=== PATIENT | male | born 1960 | race Caucasian/White ===

== ENCOUNTER 2018-06-16 01:49 | Emergency (ER) | payer BC ==
--- NOTE | 2018-07-30 13:31 | EDM.PDOC ---
ED HPI GENERAL MEDICAL PROBLEM - General Chief Complaint: General Stated Complaint: Vertigo Time Seen by Provider: 06/16/18 03:00 Source of Information: Reports: Patient History Limitations: Reports: No Limitations - History of Present Illness INITIAL COMMENTS - FREE TEXT/NARRATIVE: This is a 58yo M who just finished work at [employer] here for dizziness. He denies prior history of dizziness but felt that he was even unable to drive because of the dizziness. He does complain of some right ear pain. Denies any fever or chills. No chest pain or shortness of breath. Onset: Sudden Duration: Minutes:, Constant Location: Reports: Generalized Past Medical History HEENT History: Reports: Other (See Below) Other HEENT History: R ear fullness since yesterday Cardiovascular History: Reports: Hypertension Respiratory History: Reports: None Genitourinary History: Reports: None Musculoskeletal History: Reports: None Other Hematologic History: Hx PE's - Past Surgical History HEENT Surgical History: Reports: None Cardiovascular Surgical History: Reports: None Respiratory Surgical History: Reports: None Male Surgical History: Reports: None Other Neurological Surgeries/Procedures: dizziness started 0100 tonight, worse when Pt turns his head. States R ear pressure since yesterday. Musculoskeletal Surgical History: Reports: Arthroscopic Knee Social & Family History - Family History Family Medical History: Noncontributory - Tobacco Use Smoking Status *Q: Never Smoker Second Hand Smoke Exposure: No - Caffeine Use Caffeine Use: Reports: None - Recreational Drug Use Recreational Drug Use: No ED ROS GENERAL - Review of Systems Review Of Systems: ROS reveals no pertinent complaints other than HPI. ED EXAM, DIZZINESS - Physical Exam Exam: See Below Exam Limited By: No Limitations General Appearance: Alert, WD/WN, Mild Distress Eye Exam: Bilateral Eye: EOMI, PERRL Ears: Normal External Exam, Normal Canal, TM Erythema (right), Abnormal Insufflation (right) Nose: Normal Inspection Throat/Mouth: Normal Inspection Head Exam: Atraumatic, Normocephalic Neck: Normal Inspection Respiratory/Chest: No Respiratory Distress, Lungs Clear, Normal Breath Sounds Cardiovascular: Normal Peripheral Pulses, Regular Rate, Rhythm Neurological: Alert, Normal Mood/Affect, Normal Dorsiflexion, CN II-XII Intact Course - Vital Signs Last Recorded V/S: Last Vital Signs Temp 37.1 C 06/16/18 02:20 Pulse 89 06/16/18 02:20 Resp 18 06/16/18 02:20 BP 133/91 H 06/16/18 02:20 Pulse Ox 95 06/16/18 02:20 - Orders/Labs/Meds Meds: Medications Discontinued Medications Generic Name Dose Route Start Last Admin Trade Name Domi PRN Reason Stop Dose Admin Meclizine HCl 150 mg 06/16/18 02:00 Antivert .ROUTE 06/16/18 02:01 .STK-MED ONE Departure - Departure Time of Disposition: 03:45 Disposition: Home, Self-Care 01 Condition: Good Clinical Impression: Acute effusion of right ear - Discharge Information Instructions: Vertigo, [id number], Otitis Media, Adult, [id number] Referrals: PCP,None [Primary Care Provider] - Forms: ED Department Discharge - Problem List & Annotations (1) Acute effusion of right ear SNOMED Code(s): 95472789 Code(s): H65.191 - OTHER ACUTE NONSUPPURATIVE OTITIS MEDIA, RIGHT EAR Status: Acute - Problem List Review Problem List Initiated/Reviewed/Updated: Yes - Assessment/Plan Plan: Counseled on therapy and management. Discussed close monitoring and f/u in clinic or ER if further symptoms. Discussed resolution of symptoms and recheck as needed. Discussed care and management. Patient agrees with f/u if symptoms persist or worsen.
== END 2018-06-16 03:09 | disposition home or self-care (01) ==
LOC: LB.ED 01:49
DX: H93.8X1 Other specified disorders of right ear (principal); I10 Essential (primary) hypertension
CPT/HCPCS: 99283; A9270

== ENCOUNTER 2019-03-28 11:01 | Emergency (ER) | payer BC ==
--- NOTE | 2019-03-28 11:28 | EDM.PDOC ---
ED HPI GENERAL MEDICAL PROBLEM - General Chief Complaint: General Stated Complaint: Fall and unable to get up Time Seen by Provider: 03/28/19 11:15 Source of Information: Reports: Patient, EMS, EMS Notes Reviewed History Limitations: Reports: No Limitations - History of Present Illness INITIAL COMMENTS - FREE TEXT/NARRATIVE: This is a 59yo M here for feeling weak, chills for 24-48hrs, and falling with the inability to get up. He states he has not been feeling well for weeks and that things have gotten worse. He has a history of lymphedema and notes that there are open sores of the right lower leg for the past few days. Onset: Gradual Duration: Chronic, Resolved Prior to Arrival Location: Reports: Generalized Improves with: Reports: None Worsens with: Reports: None Associated Symptoms: Reports: Fever/Chills, Shortness of Breath, Weakness Bilateral Arm Pain Score (Numeric/FACES): 6 - Related Data Allergies Allergy/AdvReac Type Severity Reaction Status Date / Time No Known Allergies Allergy Verified 03/28/19 13:39 Home Meds: Home Meds Lisinopril 20 mg PO DAILY 03/28/19 [History] Warfarin Sodium [Jantoven] 10 mg PO DAILY 03/28/19 [History] Warfarin Sodium [Jantoven] 15 mg PO DAILY 03/28/19 [History] Past Medical History HEENT History: Reports: Other (See Below) Other HEENT History: R ear fullness since yesterday Cardiovascular History: Reports: Hypertension Respiratory History: Reports: None Genitourinary History: Reports: None Musculoskeletal History: Reports: None Other Hematologic History: Hx PE's - Past Surgical History HEENT Surgical History: Reports: None Cardiovascular Surgical History: Reports: None Respiratory Surgical History: Reports: None Male Surgical History: Reports: None Other Neurological Surgeries/Procedures: dizziness started 0100 tonight, worse when Pt turns his head. States R ear pressure since yesterday. Musculoskeletal Surgical History: Reports: Arthroscopic Knee Social & Family History - Family History Family Medical History: Noncontributory - Caffeine Use Caffeine Use: Reports: None ED ROS GENERAL - Review of Systems Review Of Systems: ROS reveals no pertinent complaints other than HPI. ED EXAM, SEPSIS - Physical Exam Exam: See Below Exam Limited By: No Limitations General Appearance: Alert, WD/WN, Mild Distress Eye Exam: Bilateral Eye: EOMI, PERRL Ears: Normal External Exam Nose: Normal Inspection Throat/Mouth: Normal Inspection Head: Atraumatic, Normocephalic Neck: Normal Inspection Respiratory/Chest: No Respiratory Distress, Lungs Clear, Normal Breath Sounds Cardiovascular: Normal Peripheral Pulses, Tachycardia Peripheral Pulses: 2+: Dorsalis Pedis (L), Dorsalis Pedis (R) GI/Abdominal Exam: Normal Bowel Sounds Back: Normal Inspection Extremities: Pedal Edema, Redness, Other (open wound of the right leg) Neurological: Alert, Oriented Psychiatric: Normal Affect, Normal Mood Skin: Wound/Incision Course - Vital Signs Last Recorded V/S: Last Vital Signs Temp 37.2 C 03/28/19 16:08 Pulse 105 H 03/28/19 16:08 Resp 20 03/28/19 16:08 BP 107/43 L 03/28/19 16:08 Pulse Ox 94 L 03/28/19 16:08 - Orders/Labs/Meds Labs: Laboratory Tests 03/28/19 03/28/19 03/28/19 Range/Units 11:25 11:25 11:25 WBC 17.7 H D (4.0-11.0) K/uL RBC 4.40 L (4.50-6.50) M/uL Hgb 12.6 L (13.0-18.0) g/dL Hct 39.9 L (40.0-54.0) % MCV 91 (76-96) fL MCH 28.6 (27.0-32.0) pg MCHC 31.6 (31.0-35.0) g/dL RDW 17.6 H (11.0-16.0) % Plt Count 275 D (150-400) K/uL MPV 8.9 (6.0-10.0) fL Neut % (Auto) 91.8 H (45.0-70.0) % Lymph % (Auto) 3.0 L (20.0-40.0) % Saunders % (Auto) 5.0 (3.0-10.0) % Eos % (Auto) 0.1 L (1.0-5.0) % Baso % (Auto) 0.1 (0.0-0.5) % Neut # (Auto) 16.26 H (2.00-7.50) K/uL Lymph # (Auto) 0.53 L (1.50-4.00) K/uL Saunders # (Auto) 0.88 H (0.20-0.80) K/uL Eos # (Auto) 0.01 L (0.04-0.40) K/uL Baso # (Auto) 0.02 (0.02-0.10) K/uL PT 24.5 H (9.0-11.5) sec INR 2.6 (1.0-3.5) D-Dimer, Quantitative (0-400) ng/mL VBG pH 7.32 (7.31-7.41) Sodium (136-145) mmol/L Potassium (3.5-5.1) mmol/L Chloride (98-107) mmol/L Carbon Dioxide (21.0-32.0) mmol/L Anion Gap (5.0-15.0) mmol/L BUN (8-26) mg/dL Creatinine (0.70-1.30) mg/dL Est Cr Clr Drug Dosing mL/min Estimated GFR (MDRD) (>60) MLS/MIN BUN/Creatinine Ratio (6-25) Glucose (74-100) mg/dL Hemoglobin A1c (4.5-6.2) % Lactic Acid (0.90-1.70) mmol/L Calcium (8.5-10.1) mg/dL Total Bilirubin (0.0-1.0) mg/dL AST (15-37) U/L ALT (12-78) U/L Alkaline Phosphatase (46-116) U/L Troponin I (0.000-0.060) ng/mL B-Natriuretic Peptide (0-125) pg/mL Total Protein (6.4-8.2) g/dL Albumin (3.4-5.0) g/dL Globulin (2.2-4.2) g/dL Albumin/Globulin Ratio (0.8-2.0) TSH, Ultra Sensitive (0.358-3.740) uIU/mL Urine Color Urine Appearance (CLEAR) Urine pH (5.0-8.0) Ur Specific [place] (1.003-1.030) Urine Protein (NEGATIVE) mg/dL Urine Glucose (UA) (NEGATIVE) mg/dL Urine Ketones (NEGATIVE) mg/dL Urine Occult Blood (NEGATIVE) Urine Nitrite (NEGATIVE) Urine Bilirubin (NEGATIVE) Urine Urobilinogen (0.2-1.0) E.U./dL Ur Leukocyte Esterase (NEGATIVE) Urine RBC /HPF Urine WBC /HPF Ur Squamous Epith Cells /HPF 03/28/19 03/28/19 03/28/19 Range/Units 11:25 11:25 11:25 WBC (4.0-11.0) K/uL RBC (4.50-6.50) M/uL Hgb (13.0-18.0) g/dL Hct (40.0-54.0) % MCV (76-96) fL MCH (27.0-32.0) pg MCHC (31.0-35.0) g/dL RDW (11.0-16.0) % Plt Count (150-400) K/uL MPV (6.0-10.0) fL Neut % (Auto) (45.0-70.0) % Lymph % (Auto) (20.0-40.0) % Saunders % (Auto) (3.0-10.0) % Eos % (Auto) (1.0-5.0) % Baso % (Auto) (0.0-0.5) % Neut # (Auto) (2.00-7.50) K/uL Lymph # (Auto) (1.50-4.00) K/uL Saunders # (Auto) (0.20-0.80) K/uL Eos # (Auto) (0.04-0.40) K/uL Baso # (Auto) (0.02-0.10) K/uL PT (9.0-11.5) sec INR (1.0-3.5) D-Dimer, Quantitative 525 H (0-400) ng/mL VBG pH (7.31-7.41) Sodium 141 (136-145) mmol/L Potassium 4.3 (3.5-5.1) mmol/L Chloride 105 (98-107) mmol/L Carbon Dioxide 28.2 (21.0-32.0) mmol/L Anion Gap 12.1 (5.0-15.0) mmol/L BUN 15 D (8-26) mg/dL Creatinine 1.42 H D (0.70-1.30) mg/dL Est Cr Clr Drug Dosing 59.26 mL/min Estimated GFR (MDRD) 51 L (>60) MLS/MIN BUN/Creatinine Ratio 10.6 (6-25) Glucose 135 H (74-100) mg/dL Hemoglobin A1c (4.5-6.2) % Lactic Acid 2.00 H (0.90-1.70) mmol/L Calcium 8.2 L (8.5-10.1) mg/dL Total Bilirubin 0.6 (0.0-1.0) mg/dL AST 33 (15-37) U/L ALT 31 (12-78) U/L Alkaline Phosphatase 66 (46-116) U/L Troponin I 0.026 (0.000-0.060) ng/mL B-Natriuretic Peptide (0-125) pg/mL Total Protein 8.8 H (6.4-8.2) g/dL Albumin 2.9 L (3.4-5.0) g/dL Globulin 5.9 H (2.2-4.2) g/dL Albumin/Globulin Ratio 0.5 L (0.8-2.0) TSH, Ultra Sensitive 0.791 (0.358-3.740) uIU/mL Urine Color Urine Appearance (CLEAR) Urine pH (5.0-8.0) Ur Specific [place] (1.003-1.030) Urine Protein (NEGATIVE) mg/dL Urine Glucose (UA) (NEGATIVE) mg/dL Urine Ketones (NEGATIVE) mg/dL Urine Occult Blood (NEGATIVE) Urine Nitrite (NEGATIVE) Urine Bilirubin (NEGATIVE) Urine Urobilinogen (0.2-1.0) E.U./dL Ur Leukocyte Esterase (NEGATIVE) Urine RBC /HPF Urine WBC /HPF Ur Squamous Epith Cells /HPF 03/28/19 03/28/19 03/28/19 Range/Units 11:25 11:25 12:00 WBC (4.0-11.0) K/uL RBC (4.50-6.50) M/uL Hgb (13.0-18.0) g/dL Hct (40.0-54.0) % MCV (76-96) fL MCH (27.0-32.0) pg MCHC (31.0-35.0) g/dL RDW (11.0-16.0) % Plt Count (150-400) K/uL MPV (6.0-10.0) fL Neut % (Auto) (45.0-70.0) % Lymph % (Auto) (20.0-40.0) % Saunders % (Auto) (3.0-10.0) % Eos % (Auto) (1.0-5.0) % Baso % (Auto) (0.0-0.5) % Neut # (Auto) (2.00-7.50) K/uL Lymph # (Auto) (1.50-4.00) K/uL Saunders # (Auto) (0.20-0.80) K/uL Eos # (Auto) (0.04-0.40) K/uL Baso # (Auto) (0.02-0.10) K/uL PT (9.0-11.5) sec INR (1.0-3.5) D-Dimer, Quantitative (0-400) ng/mL VBG pH (7.31-7.41) Sodium (136-145) mmol/L Potassium (3.5-5.1) mmol/L Chloride (98-107) mmol/L Carbon Dioxide (21.0-32.0) mmol/L Anion Gap (5.0-15.0) mmol/L BUN (8-26) mg/dL Creatinine (0.70-1.30) mg/dL Est Cr Clr Drug Dosing mL/min Estimated GFR (MDRD) (>60) MLS/MIN BUN/Creatinine Ratio (6-25) Glucose (74-100) mg/dL Hemoglobin A1c 6.8 H (4.5-6.2) % Lactic Acid (0.90-1.70) mmol/L Calcium (8.5-10.1) mg/dL Total Bilirubin (0.0-1.0) mg/dL AST (15-37) U/L ALT (12-78) U/L Alkaline Phosphatase (46-116) U/L Troponin I (0.000-0.060) ng/mL B-Natriuretic Peptide 736 H (0-125) pg/mL Total Protein (6.4-8.2) g/dL Albumin (3.4-5.0) g/dL Globulin (2.2-4.2) g/dL Albumin/Globulin Ratio (0.8-2.0) TSH, Ultra Sensitive (0.358-3.740) uIU/mL Urine Color Yellow Urine Appearance Clear (CLEAR) Urine pH 5.5 (5.0-8.0) Ur Specific [place] 1.020 (1.003-1.030) Urine Protein 100 H (NEGATIVE) mg/dL Urine Glucose (UA) Negative (NEGATIVE) mg/dL Urine Ketones Negative (NEGATIVE) mg/dL Urine Occult Blood Moderate H (NEGATIVE) Urine Nitrite Negative (NEGATIVE) Urine Bilirubin Negative (NEGATIVE) Urine Urobilinogen 0.2 (0.2-1.0) E.U./dL Ur Leukocyte Esterase Negative (NEGATIVE) Urine RBC 0-5 H /HPF Urine WBC 0-5 H /HPF Ur Squamous Epith Cells Few /HPF Meds: Medications Discontinued Medications Generic Name Dose Route Start Last Admin Trade Name Freq PRN Reason Stop Dose Admin Acetaminophen Confirm 03/28/19 15:11 03/28/19 17:23 Tylenol Administered 03/28/19 15:12 Not Given Dose 650 mg .ROUTE .STK-MED ONE Acetaminophen 650 mg 03/28/19 17:22 03/28/19 15:03 Tylenol PO 03/28/19 17:23 650 mg NOW ONE Administration Sodium Chloride 1,000 mls @ 999 mls/hr 03/28/19 12:00 03/28/19 13:50 Normal Saline IV 999 mls/hr ASDIRECTED NELIDA Administration Piperacillin Sod/Tazobactam 100 mls @ 200 mls/hr 03/28/19 12:00 03/28/19 13: 00 Sod 4.5 gm/ Sodium Chloride IV 200 mls/hr Q6H NELIDA Administration Departure - Departure Time of Disposition: 14:45 Disposition: DC/Tfer to Acute Hospital 02 Condition: Good Clinical Impression: SIRS (systemic inflammatory response syndrome) Sepsis Qualifiers: Sepsis type: sepsis due to unspecified organism Sepsis acute organ dysfunction status: with acute organ dysfunction Severe sepsis acute organ dysfunction type : acute renal failure Acute renal failure type: unspecified Severe sepsis shock status: unspecified Qualified Code(s): A41.9 - Sepsis, unspecified organism - Discharge Information Referrals: PCP,None [Primary Care Provider] - Forms: ED Department Discharge - Problem List & Annotations (1) SIRS (systemic inflammatory response syndrome) SNOMED Code(s): 556505106 Code(s): R65.10 - SIRS OF NON-INFECTIOUS ORIGIN W/O ACUTE ORGAN DYSFUNCTION Status: Acute Priority: High (2) Sepsis SNOMED Code(s): 22965059 Code(s): A41.9 - SEPSIS, UNSPECIFIED ORGANISM Status: Acute Priority: High Qualifiers: Sepsis type: sepsis due to unspecified organism Sepsis acute organ dysfunction status: with acute organ dysfunction Severe sepsis acute organ dysfunction type: acute renal failure Acute renal failure type: unspecified Severe sepsis shock status: unspecified Qualified Code(s): A41.9 - Sepsis, unspecified organism; R65.20 - Severe sepsis without septic shock; N17.9 - Acute kidney failure, unspecified - Problem List Review Problem List Initiated/Reviewed/Updated: Yes - Assessment/Plan Plan: Patient counseled on transfer to [facility] for further care in ICU. Patient to be transferred by [facility]. ([facility] declined transfer as they did not feel comfortable with this patient.)
[2019-03-28] MEDS ORDERED: Piperacillin/Tazobactam 4.5 GM in Sodium Chloride 0.9% 100 ML IV SCH (12:00)
[2019-03-28] MEDS ORDERED: Sodium Chloride 0.9% 1,000 ML IV SCH (12:00)
[2019-03-28 12:09] LABS: HEMOGLOBIN A1C 6.8 % (4.5-6.2)
--- NOTE | 2019-03-28 13:20 | CR ---
Date of Service: 03/28/19 Clinical Data: weakness AP PORTABLE CHEST: Comparison is made to a prior exam dated 04/10/10. The exam is under penetrated most likely related to the patient's size. The heart is enlarged. There is pulmonary vascular congestion with cephalization of flow consistent with pulmonary venous congestion. There is slight increased density in the left lung base suggesting infiltrate or atelectasis. The lungs are otherwise clear. No pneumothorax. No pleural effusions. [id number] [facility]
[2019-03-28] MEDS ORDERED: Acetaminophen 325 MG Tab ONE (15:11)
[2019-03-28] MEDS ORDERED: Acetaminophen 325 MG Tab PO ONE (17:22)
== END 2019-03-28 17:15 ==
LOC: LB.ED 11:01
DX: A41.9 Sepsis, unspecified organism (principal); R65.20 Severe sepsis without septic shock; N17.9 Acute kidney failure, unspecified; I10 Essential (primary) hypertension; Z79.01 Long term (current) use of anticoagulants; Z79.899 Other long term (current) drug therapy
CPT/HCPCS: 36415; 71045; 80053; 81001; 82800; 83036; 83605; 83880; 84443; 84484; 85025; 85379; 85610; 87040; 87070; 87077; 87205; 93005; 96361; 96365; 99285; A0425; A0429; A9270; J2543; J7030

== ENCOUNTER 2019-11-14 11:04 | Inpatient (IN) | payer BC ==
[2019-11-14] MEDS ORDERED: Furosemide 40 MG/4 ML VIAL ONE (11:56)
--- NOTE | 2019-11-14 12:36 | EDM.PDOC ---
ED HPI GENERAL MEDICAL PROBLEM - General Stated Complaint: UNABLE TO GET UP Time Seen by Provider: 11/14/19 11:04 Source of Information: Reports: Patient, EMS, RN, Other (primary MD) - History of Present Illness INITIAL COMMENTS - FREE TEXT/NARRATIVE: Wicho presents via ems as he was unable to ascend from his chair. No focal weakness or speech deficits. No recent illness, h/a, or fevers. Denies SOB. He was doing quite well in staying active working at [employer] recently, as little as a couple of weeks ago. Attributes his inability to stand and ambulate at present to deconditioning, namely, lack of exercise. He has been following for wound care of bilateral distal lower extremity skin changes, felt related to his venous insufficiency. He has had no chest pain, diaphoresis, or orthopnea, although he was confined to his chair for 2 days. No gi/gu changes. Prefers not to have a andrews placed. He thinks he would want to be full code. - Related Data Allergies Allergy/AdvReac Type Severity Reaction Status Date / Time No Known Allergies Allergy Verified 03/28/19 13:39 Home Meds: Home Meds Warfarin Sodium [Jantoven] 10 mg PO DAILY 03/28/19 [History] Warfarin Sodium [Jantoven] 15 mg PO DAILY 03/28/19 [History] Furosemide 40 mg PO BID 11/14/19 [History] Past Medical History HEENT History: Reports: Other (See Below) Other HEENT History: R ear fullness since yesterday Cardiovascular History: Reports: Hypertension Respiratory History: Reports: None Genitourinary History: Reports: None Musculoskeletal History: Reports: None Other Hematologic History: Hx PE's - Past Surgical History HEENT Surgical History: Reports: None Cardiovascular Surgical History: Reports: None Respiratory Surgical History: Reports: None Male Surgical History: Reports: None Other Neurological Surgeries/Procedures: dizziness started 0100 tonight, worse when Pt turns his head. States R ear pressure since yesterday. Musculoskeletal Surgical History: Reports: Arthroscopic Knee Social & Family History - Family History Family Medical History: Noncontributory - Caffeine Use Caffeine Use: Reports: None ED ROS GENERAL - Review of Systems Review Of Systems: Comprehensive ROS is negative, except as noted in HPI. ED EXAM, GENERAL - Physical Exam Exam: See Below Exam Limited By: No Limitations General Appearance: Alert, WD/WN, No Apparent Distress Eye Exam: Bilateral Eye: EOMI, Normal Inspection Ears: Normal External Exam, Hearing Grossly Normal Nose: Normal Inspection Throat/Mouth: Normal Inspection, Normal Voice, No Airway Compromise Head: Atraumatic, Normocephalic Neck: Normal Inspection, Supple, Full Range of Motion Respiratory/Chest: No Respiratory Distress, Lungs Clear, Normal Breath Sounds. No: Rales, Rhonchi, Wheezing Cardiovascular: Regular Rate, Rhythm. No: Systolic Murmur GI/Abdominal: Normal Bowel Sounds, Soft, Non-Tender, Other (rotund) Extremities: Pedal Edema (significant brawny skin tone and carcked weepy erythematous ) Neurological: Alert, Oriented, Normal Cognition, No Motor/Sensory Deficits Psychiatric: Normal Affect, Normal Mood Skin Exam: Warm Course - Vital Signs Text/Narrative:: Seems most related to significant weight gain and inability to flex his hips against the mechanical load. He certainly has a host of reasons for development of right-sided symptoms. Does not appear ischemic. Leg wounds impressive, but he assures me that these are improved. Low suspicion for sepsis. Plan to diurese and continue with wund care, and PT also will help with deconditioning. Last Recorded V/S: Last Vital Signs Temp 98.6 F 11/14/19 15:25 Pulse 94 11/14/19 15:25 Resp 26 H 11/14/19 15:25 BP 158/88 H 11/14/19 15:25 Pulse Ox 92 L 11/14/19 17:32 - Orders/Labs/Meds Orders: Medication Orders Acetaminophen (Tylenol) 650 mg PO Q4H PRN PRN Reason: Pain (Mild 1-3)/fever Furosemide (Lasix) 20 mg IVPUSH BID [facility] Last Admin: 11/14/19 19:33 Dose: 20 mg Piperacillin Sod/Tazobactam (Sod 4.5 gm/ Sodium Chloride) 100 mls @ 200 mls/hr IV Q6H [facility] Magnesium Hydroxide (Milk Of Magnesia) 30 ml PO Q12H PRN PRN Reason: Constipation Magnesium Oxide (Magnesium Oxide) 400 mg PO DAILY [facility] Last Admin: 11/14/19 17:53 Dose: 400 mg Multivitamins/Minerals (Thera M Plus) 1 tab PO DAILY [facility] Last Admin: 11/14/19 17:53 Dose: 1 tab Nystatin (Nystatin Crm) 0 gm TOP QID PRN PRN Reason: Rash Nystatin (Nystop) 0 gm TOP QID PRN PRN Reason: Rash Potassium Chloride (Klor-Con M20) 20 meq PO BID [facility] Last Admin: 11/14/19 20:08 Dose: 20 meq Admin: 11/14/19 17:53 Dose: 20 meq Sodium Chloride (Saline Flush) 10 ml FLUSH ASDIRECTED PRN PRN Reason: Keep Vein Open Last Admin: 11/14/19 15:01 Dose: 10 ml Triamcinolone Acetonide (Triamcinolone Acetonide 0.1% Crm) 0 gm TOP TID PRN PRN Reason: Rash Warfarin Sodium (Coumadin) 12 mg PO DAILY@1800 [facility] Last Admin: 11/14/19 17:54 Dose: 12 mg Labs: Laboratory Tests 11/14/19 11/14/19 11/14/19 Range/Units 12:23 12:40 12:40 WBC 10.5 D (4.0-11.0) K/uL RBC 4.97 (4.50-6.50) M/uL Hgb 14.3 (13.0-18.0) g/dL Hct 45.2 (40.0-54.0) % MCV 91 (76-96) fL MCH 28.8 (27.0-32.0) pg MCHC 31.6 (31.0-35.0) g/dL RDW 19.4 H (11.0-16.0) % Plt Count 319 (150-400) K/uL MPV 8.9 (6.0-10.0) fL Neut % (Auto) 77.6 H (45.0-70.0) % Lymph % (Auto) 12.8 L (20.0-40.0) % Chaves % (Auto) 8.5 (3.0-10.0) % Eos % (Auto) 0.7 L (1.0-5.0) % Baso % (Auto) 0.4 (0.0-0.5) % Neut # (Auto) 8.17 H (2.00-7.50) K/uL Lymph # (Auto) 1.35 L (1.50-4.00) K/uL Chaves # (Auto) 0.89 H (0.20-0.80) K/uL Eos # (Auto) 0.07 (0.04-0.40) K/uL Baso # (Auto) 0.04 (0.02-0.10) K/uL PT (9.0-11.5) sec INR (1.0-3.5) Sodium 141 (136-145) mmol/L Potassium 4.2 (3.5-5.1) mmol/L Chloride 102 (98-107) mmol/L Carbon Dioxide 36.0 H (21.0-32.0) mmol/L Anion Gap 7.2 (5.0-15.0) mmol/L BUN 26 D (8-26) mg/dL Creatinine 1.24 (0.70-1.30) mg/dL Est Cr Clr Drug Dosing 67.87 mL/min Estimated GFR (MDRD) > 60 (>60) MLS/MIN BUN/Creatinine Ratio 21.0 (6-25) Glucose 112 H (74-100) mg/dL Hemoglobin A1c (< 5.7) % Lactic Acid (0.4-2.0) mmol/L Calcium 8.4 L (8.5-10.1) mg/dL Magnesium 2.0 (1.8-2.4) mg/dL Total Bilirubin 1.2 H D (0.0-1.0) mg/dL AST 18 (15-37) U/L ALT 18 (12-78) U/L Alkaline Phosphatase 65 (46-116) U/L Creatine Kinase 65 (21-232) U/L Troponin I < 0.017 (0.000-0.060) ng/mL C-Reactive Protein 60.0 H (0.0-3.0) mg/L B-Natriuretic Peptide 2222 H D (0-125) pg/mL Total Protein 8.2 (6.4-8.2) g/dL Albumin 2.6 L (3.4-5.0) g/dL Globulin 5.6 H (2.2-4.2) g/dL Albumin/Globulin Ratio 0.5 L (0.8-2.0) TSH, Ultra Sensitive (0.358-3.740) uIU/mL 11/14/19 11/14/19 11/14/19 Range/Units 12:40 12:40 12:40 WBC (4.0-11.0) K/uL RBC (4.50-6.50) M/uL Hgb (13.0-18.0) g/dL Hct (40.0-54.0) % MCV (76-96) fL MCH (27.0-32.0) pg MCHC (31.0-35.0) g/dL RDW (11.0-16.0) % Plt Count (150-400) K/uL MPV (6.0-10.0) fL Neut % (Auto) (45.0-70.0) % Lymph % (Auto) (20.0-40.0) % Chaves % (Auto) (3.0-10.0) % Eos % (Auto) (1.0-5.0) % Baso % (Auto) (0.0-0.5) % Neut # (Auto) (2.00-7.50) K/uL Lymph # (Auto) (1.50-4.00) K/uL Chaves # (Auto) (0.20-0.80) K/uL Eos # (Auto) (0.04-0.40) K/uL Baso # (Auto) (0.02-0.10) K/uL PT 13.3 H D (9.0-11.5) sec INR 1.4 D (1.0-3.5) Sodium (136-145) mmol/L Potassium (3.5-5.1) mmol/L Chloride (98-107) mmol/L Carbon Dioxide (21.0-32.0) mmol/L Anion Gap (5.0-15.0) mmol/L BUN (8-26) mg/dL Creatinine (0.70-1.30) mg/dL Est Cr Clr Drug Dosing mL/min Estimated GFR (MDRD) (>60) MLS/MIN BUN/Creatinine Ratio (6-25) Glucose (74-100) mg/dL Hemoglobin A1c (< 5.7) % Lactic Acid 2.0 (0.4-2.0) mmol/L Calcium (8.5-10.1) mg/dL Magnesium (1.8-2.4) mg/dL Total Bilirubin (0.0-1.0) mg/dL AST (15-37) U/L ALT (12-78) U/L Alkaline Phosphatase (46-116) U/L Creatine Kinase (21-232) U/L Troponin I (0.000-0.060) ng/mL C-Reactive Protein (0.0-3.0) mg/L B-Natriuretic Peptide (0-125) pg/mL Total Protein (6.4-8.2) g/dL Albumin (3.4-5.0) g/dL Globulin (2.2-4.2) g/dL Albumin/Globulin Ratio (0.8-2.0) TSH, Ultra Sensitive 5.390 H D (0.358-3.740) uIU/mL 11/14/19 Range/Units 12:40 WBC (4.0-11.0) K/uL RBC (4.50-6.50) M/uL Hgb (13.0-18.0) g/dL Hct (40.0-54.0) % MCV (76-96) fL MCH (27.0-32.0) pg MCHC (31.0-35.0) g/dL RDW (11.0-16.0) % Plt Count (150-400) K/uL MPV (6.0-10.0) fL Neut % (Auto) (45.0-70.0) % Lymph % (Auto) (20.0-40.0) % Chaves % (Auto) (3.0-10.0) % Eos % (Auto) (1.0-5.0) % Baso % (Auto) (0.0-0.5) % Neut # (Auto) (2.00-7.50) K/uL Lymph # (Auto) (1.50-4.00) K/uL Chaves # (Auto) (0.20-0.80) K/uL Eos # (Auto) (0.04-0.40) K/uL Baso # (Auto) (0.02-0.10) K/uL PT (9.0-11.5) sec INR (1.0-3.5) Sodium (136-145) mmol/L Potassium (3.5-5.1) mmol/L Chloride (98-107) mmol/L Carbon Dioxide (21.0-32.0) mmol/L Anion Gap (5.0-15.0) mmol/L BUN (8-26) mg/dL Creatinine (0.70-1.30) mg/dL Est Cr Clr Drug Dosing mL/min Estimated GFR (MDRD) (>60) MLS/MIN BUN/Creatinine Ratio (6-25) Glucose (74-100) mg/dL Hemoglobin A1c 7.1 H (< 5.7) % Lactic Acid (0.4-2.0) mmol/L Calcium (8.5-10.1) mg/dL Magnesium (1.8-2.4) mg/dL Total Bilirubin (0.0-1.0) mg/dL AST (15-37) U/L ALT (12-78) U/L Alkaline Phosphatase (46-116) U/L Creatine Kinase (21-232) U/L Troponin I (0.000-0.060) ng/mL C-Reactive Protein (0.0-3.0) mg/L B-Natriuretic Peptide (0-125) pg/mL Total Protein (6.4-8.2) g/dL Albumin (3.4-5.0) g/dL Globulin (2.2-4.2) g/dL Albumin/Globulin Ratio (0.8-2.0) TSH, Ultra Sensitive (0.358-3.740) uIU/mL Meds: Medications Generic Name Dose Route Start Last Admin Trade Name Freq PRN Reason Stop Dose Admin Acetaminophen 650 mg 11/14/19 12:52 Tylenol PO Q4H PRN Pain (Mild 1-3)/fever Furosemide 20 mg 11/14/19 20:00 11/14/19 19:33 Lasix IVPUSH 20 mg BID [facility] Administration Piperacillin Sod/Tazobactam 100 mls @ 200 mls/hr 11/14/19 20:00 Sod 4.5 gm/ Sodium Chloride IV Q6H [facility] Magnesium Hydroxide 30 ml 11/14/19 12:52 Milk Of Magnesia PO Q12H PRN Constipation Magnesium Oxide 400 mg 11/14/19 14:30 11/14/19 17:53 Magnesium Oxide PO 400 mg DAILY [facility] Administration Multivitamins/Minerals 1 tab 11/14/19 14:30 11/14/19 17:53 Thera M Plus PO 1 tab DAILY [facility] Administration Nystatin 0 gm 11/14/19 14:11 Nystatin Crm TOP QID PRN Rash Nystatin 0 gm 11/14/19 14:11 Nystop TOP QID PRN Rash Potassium Chloride 20 meq 11/14/19 14:30 11/14/19 20:08 Klor-Con M20 PO 20 meq BID [facility] Administration Sodium Chloride 10 ml 11/14/19 12:52 11/14/19 15:01 Saline Flush FLUSH 10 ml ASDIRECTED PRN Administration Keep Vein Open Triamcinolone Acetonide 0 gm 11/14/19 14:19 Triamcinolone Acetonide 0.1% Crm TOP TID PRN Rash Warfarin Sodium 12 mg 11/14/19 18:00 11/14/19 17:54 Coumadin PO 12 mg DAILY@1800 [facility] Administration Discontinued Medications Generic Name Dose Route Start Last Admin Trade Name Freq PRN Reason Stop Dose Admin Albuterol/Ipratropium 3 ml 11/14/19 20:05 11/14/19 20:34 Duoneb 3.0-0.5 Mg/3 Ml NEB 11/14/19 20:06 3 ml ONETIME ONE Administration Furosemide Confirm 11/14/19 11:56 11/14/19 15:00 Lasix Administered 11/14/19 11:57 40 mg Dose Administration 40 mg .ROUTE .STK-MED ONE Lidocaine HCl Confirm 11/14/19 19:53 Xylocaine 2% Jelly Administered 11/14/19 19:54 Dose 5 ml .ROUTE .STK-MED ONE Methylprednisolone Sodium Succinate 125 mg 11/14/19 20:02 Solu-Medrol IVPUSH 11/14/19 20:03 ONETIME ONE Metolazone 5 mg 11/14/19 14:10 11/14/19 14:30 Zaroxolyn PO 11/14/19 14:11 5 mg ONETIME ONE Administration Morphine Sulfate 2 mg 11/14/19 20:01 11/14/19 20:25 Morphine IVPUSH 11/14/19 20:02 2 mg ONETIME ONE Administration Triamcinolone Acetonide Confirm 11/14/19 14:28 11/14/19 15:07 Triamcinolone Acetonide 0.5% Administered 11/14/19 14:29 Not Given Dose 15 gm .ROUTE .STK-MED ONE Warfarin Sodium Confirm 11/14/19 17:52 11/14/19 19:09 Coumadin Administered 11/14/19 17:53 Not Given Dose 5 mg .ROUTE .STK-MED ONE Warfarin Sodium Confirm 11/14/19 17:52 11/14/19 19:09 Coumadin Administered 11/14/19 17:53 Not Given Dose 7.5 mg .ROUTE .STK-MED ONE Departure - Departure Time of Disposition: 12:00 Disposition: Admitted As Inpatient 68 Clinical Impression: Weakness - Discharge Information Sepsis Event Note - Focused Exam Vital Signs: Vital Signs Temp Pulse Resp BP Pulse Ox 11/14/19 12:23 97.2 F 98 21 H 130/110 H 100 11/14/19 12:00 97.8 F 78 26 H 160/90 H 100 Date Exam was Performed: 11/14/19 Time Exam was Performed: 20:49
[2019-11-14] MEDS ORDERED: Acetaminophen 325 MG Tab PO PRN (12:52)
[2019-11-14] MEDS ORDERED: Sodium Chloride 0.9% 10 ML Syringe FLUSH PRN (12:52)
[2019-11-14] MEDS ORDERED: Magnesium Hydroxide 400 MG/5 ML Susp 30 ML Cup PO PRN (12:52)
[2019-11-14 12:56] LABS: HEMOGLOBIN A1C 7.1 % (< 5.7)
[2019-11-14] MEDS ORDERED: Metolazone 5 MG Tab PO ONE (14:10)
[2019-11-14] MEDS ORDERED: Nystatin Crm 30 GM Tube TOP PRN (14:11)
[2019-11-14] MEDS ORDERED: Nystatin Topical Powder 15 GM Bottle TOP PRN (14:11)
[2019-11-14] MEDS ORDERED: Triamcinolone Acetonide 0.1% Crm 15 GM Tube TOP PRN (14:19)
[2019-11-14] MEDS ORDERED: Triamcinolone Acetonide 0.5% Crm 15 GM Tube ONE (14:28)
[2019-11-14] MEDS ORDERED: Multivitamins with Iron/Calcium/Folic Acid/Minerals Tab PO SCH (14:30)
[2019-11-14] MEDS ORDERED: Magnesium Oxide 400 MG Tab PO SCH (14:30)
[2019-11-14] MEDS ORDERED: Warfarin 2 MG Tab PO SCH (15:00)
[2019-11-14] MEDS ORDERED: Warfarin 7.5 MG Tab ONE (17:52)
[2019-11-14] MEDS ORDERED: Warfarin 5 MG Tab ONE (17:52)
[2019-11-14] MEDS: Potassium Chloride 20 MEQ Tab.ER PO SCH ×2 (17:53→20:08)
[2019-11-14] MEDS ORDERED: Lidocaine 2% Jelly 5 ML Urojet ONE (19:53)
[2019-11-14] MEDS ORDERED: Furosemide 20 MG/2 ML VIAL IVPUSH SCH (20:00)
[2019-11-14] MEDS ORDERED: Piperacillin/Tazobactam 4.5 GM in Sodium Chloride 0.9% 100 ML IV SCH (20:00)
[2019-11-14] MEDS ORDERED: Morphine 2 MG/ML Syringe IVPUSH ONE (20:01)
[2019-11-14] MEDS ORDERED: methylPREDNISolone Sodium Succinate 125 MG/2 ML SDV IVPUSH ONE (20:02)
[2019-11-14] MEDS ORDERED: Albuterol/Ipratropium 3.0-0.5 MG/3 ML Neb Soln NEB ONE (20:05)
--- NOTE | 2019-11-14 20:58 | PCM.HP.2 ---
H&P History of Present Illness - General Date of Service: 11/14/19 Admit Problem/Dx: Admission Diagnosis/Problem Admission Diagnosis/Problem Weakness - History of Present Illness Initial Comments - Free Text/Narative: Please refer to ER documentation and let that serve as my History and Physical - Related Data Allergies/Adverse Reactions: Allergies Allergy/AdvReac Type Severity Reaction Status Date / Time No Known Allergies Allergy Verified 03/28/19 13:39 Home Medications: Home Meds Warfarin Sodium [Jantoven] 10 mg PO DAILY 03/28/19 [History] Warfarin Sodium [Jantoven] 15 mg PO DAILY 03/28/19 [History] Furosemide 40 mg PO BID 11/14/19 [History] Past Medical History HEENT History: Reports: Other (See Below) Other HEENT History: R ear fullness since yesterday Cardiovascular History: Reports: Hypertension Respiratory History: Reports: None Genitourinary History: Reports: None Musculoskeletal History: Reports: None Other Hematologic History: Hx PE's Dermatologic History: Reports: Other (See Below) Other Dermatologic History: Fluid retention bilateraly, needs legs wrapped, draining wounds - Past Surgical History HEENT Surgical History: Reports: None Cardiovascular Surgical History: Reports: None Respiratory Surgical History: Reports: None Male Surgical History: Reports: None Other Neurological Surgeries/Procedures: dizziness started 0100 tonight, worse when Pt turns his head. States R ear pressure since yesterday. Musculoskeletal Surgical History: Reports: Arthroscopic Knee Social & Family History - Family History Family Medical History: Noncontributory - Tobacco Use Smoking Status *Q: Never Smoker Second Hand Smoke Exposure: No - Caffeine Use Caffeine Use: Reports: None - Recreational Drug Use Recreational Drug Use: No H&P Review of Systems - Review of Systems: Review Of Systems: See Below Exam - Exam Exam: See Below - Vital Signs Vital Signs: Last Vital Signs Temp 98.6 F 11/14/19 15:25 Pulse 94 11/14/19 15:25 Resp 26 H 11/14/19 15:25 BP 158/88 H 11/14/19 15:25 Pulse Ox 92 L 11/14/19 17:32 Weight: 27 lb 3 oz - Patient Data Lab Results Last 24 hrs: Laboratory Results - last 24 hr 11/14/19 11/14/19 11/14/19 Range/Units 12:23 12:40 12:40 WBC 10.5 D (4.0-11.0) K/uL RBC 4.97 (4.50-6.50) M/uL Hgb 14.3 (13.0-18.0) g/dL Hct 45.2 (40.0-54.0) % MCV 91 (76-96) fL MCH 28.8 (27.0-32.0) pg MCHC 31.6 (31.0-35.0) g/dL RDW 19.4 H (11.0-16.0) % Plt Count 319 (150-400) K/uL MPV 8.9 (6.0-10.0) fL Neut % (Auto) 77.6 H (45.0-70.0) % Lymph % (Auto) 12.8 L (20.0-40.0) % [place] % (Auto) 8.5 (3.0-10.0) % Eos % (Auto) 0.7 L (1.0-5.0) % Baso % (Auto) 0.4 (0.0-0.5) % Neut # (Auto) 8.17 H (2.00-7.50) K/uL Lymph # (Auto) 1.35 L (1.50-4.00) K/uL [place] # (Auto) 0.89 H (0.20-0.80) K/uL Eos # (Auto) 0.07 (0.04-0.40) K/uL Baso # (Auto) 0.04 (0.02-0.10) K/uL PT (9.0-11.5) sec INR (1.0-3.5) ABG pH (7.35-7.45) ABG pCO2 (35-45) mmHg ABG pO2 (80-105) mmHg ABG HCO3 (22-26) mmol/L ABG O2 Saturation (95-98) % ABG Base Excess (-2-2) O2 Delivery Device Sodium 141 (136-145) mmol/L Potassium 4.2 (3.5-5.1) mmol/L Chloride 102 (98-107) mmol/L Carbon Dioxide 36.0 H (21.0-32.0) mmol/L Anion Gap 7.2 (5.0-15.0) mmol/L BUN 26 D (8-26) mg/dL Creatinine 1.24 (0.70-1.30) mg/dL Est Cr Clr Drug Dosing 67.87 mL/min Estimated GFR (MDRD) > 60 (>60) MLS/MIN BUN/Creatinine Ratio 21.0 (6-25) Glucose 112 H (74-100) mg/dL Hemoglobin A1c (< 5.7) % Lactic Acid (0.4-2.0) mmol/L Calcium 8.4 L (8.5-10.1) mg/dL Magnesium 2.0 (1.8-2.4) mg/dL Total Bilirubin 1.2 H D (0.0-1.0) mg/dL AST 18 (15-37) U/L ALT 18 (12-78) U/L Alkaline Phosphatase 65 (46-116) U/L Creatine Kinase 65 (21-232) U/L Troponin I < 0.017 (0.000-0.060) ng/mL C-Reactive Protein 60.0 H (0.0-3.0) mg/L B-Natriuretic Peptide 2222 H D (0-125) pg/mL Total Protein 8.2 (6.4-8.2) g/dL Albumin 2.6 L (3.4-5.0) g/dL Globulin 5.6 H (2.2-4.2) g/dL Albumin/Globulin Ratio 0.5 L (0.8-2.0) TSH, Ultra Sensitive (0.358-3.740) uIU/mL Urine Color Urine Appearance (CLEAR) Urine pH (5.0-8.0) Ur Specific [place] (1.003-1.030) Urine Protein (NEGATIVE) mg/dL Urine Glucose (UA) (NEGATIVE) mg/dL Urine Ketones (NEGATIVE) mg/dL Urine Occult Blood (NEGATIVE) Urine Nitrite (NEGATIVE) Urine Bilirubin (NEGATIVE) Urine Urobilinogen (0.2-1.0) E.U./dL Ur Leukocyte Esterase (NEGATIVE) U Hyaline Cast (Auto) /HPF Urine RBC /HPF Urine WBC /HPF Fine Granular Casts /HPF 11/14/19 11/14/19 11/14/19 Range/Units 12:40 12:40 12:40 WBC (4.0-11.0) K/uL RBC (4.50-6.50) M/uL Hgb (13.0-18.0) g/dL Hct (40.0-54.0) % MCV (76-96) fL MCH (27.0-32.0) pg MCHC (31.0-35.0) g/dL RDW (11.0-16.0) % Plt Count (150-400) K/uL MPV (6.0-10.0) fL Neut % (Auto) (45.0-70.0) % Lymph % (Auto) (20.0-40.0) % [place] % (Auto) (3.0-10.0) % Eos % (Auto) (1.0-5.0) % Baso % (Auto) (0.0-0.5) % Neut # (Auto) (2.00-7.50) K/uL Lymph # (Auto) (1.50-4.00) K/uL [place] # (Auto) (0.20-0.80) K/uL Eos # (Auto) (0.04-0.40) K/uL Baso # (Auto) (0.02-0.10) K/uL PT 13.3 H D (9.0-11.5) sec INR 1.4 D (1.0-3.5) ABG pH (7.35-7.45) ABG pCO2 (35-45) mmHg ABG pO2 (80-105) mmHg ABG HCO3 (22-26) mmol/L ABG O2 Saturation (95-98) % ABG Base Excess (-2-2) O2 Delivery Device Sodium (136-145) mmol/L Potassium (3.5-5.1) mmol/L Chloride (98-107) mmol/L Carbon Dioxide (21.0-32.0) mmol/L Anion Gap (5.0-15.0) mmol/L BUN (8-26) mg/dL Creatinine (0.70-1.30) mg/dL Est Cr Clr Drug Dosing mL/min Estimated GFR (MDRD) (>60) MLS/MIN BUN/Creatinine Ratio (6-25) Glucose (74-100) mg/dL Hemoglobin A1c (< 5.7) % Lactic Acid 2.0 (0.4-2.0) mmol/L Calcium (8.5-10.1) mg/dL Magnesium (1.8-2.4) mg/dL Total Bilirubin (0.0-1.0) mg/dL AST (15-37) U/L ALT (12-78) U/L Alkaline Phosphatase (46-116) U/L Creatine Kinase (21-232) U/L Troponin I (0.000-0.060) ng/mL C-Reactive Protein (0.0-3.0) mg/L B-Natriuretic Peptide (0-125) pg/mL Total Protein (6.4-8.2) g/dL Albumin (3.4-5.0) g/dL Globulin (2.2-4.2) g/dL Albumin/Globulin Ratio (0.8-2.0) TSH, Ultra Sensitive 5.390 H D (0.358-3.740) uIU/mL Urine Color Urine Appearance (CLEAR) Urine pH (5.0-8.0) Ur Specific [place] (1.003-1.030) Urine Protein (NEGATIVE) mg/dL Urine Glucose (UA) (NEGATIVE) mg/dL Urine Ketones (NEGATIVE) mg/dL Urine Occult Blood (NEGATIVE) Urine Nitrite (NEGATIVE) Urine Bilirubin (NEGATIVE) Urine Urobilinogen (0.2-1.0) E.U./dL Ur Leukocyte Esterase (NEGATIVE) U Hyaline Cast (Auto) /HPF Urine RBC /HPF Urine WBC /HPF Fine Granular Casts /HPF 11/14/19 11/14/19 11/14/19 Range/Units 12:40 14:17 20:00 WBC (4.0-11.0) K/uL RBC (4.50-6.50) M/uL Hgb (13.0-18.0) g/dL Hct (40.0-54.0) % MCV (76-96) fL MCH (27.0-32.0) pg MCHC (31.0-35.0) g/dL RDW (11.0-16.0) % Plt Count (150-400) K/uL MPV (6.0-10.0) fL Neut % (Auto) (45.0-70.0) % Lymph % (Auto) (20.0-40.0) % [place] % (Auto) (3.0-10.0) % Eos % (Auto) (1.0-5.0) % Baso % (Auto) (0.0-0.5) % Neut # (Auto) (2.00-7.50) K/uL Lymph # (Auto) (1.50-4.00) K/uL [place] # (Auto) (0.20-0.80) K/uL Eos # (Auto) (0.04-0.40) K/uL Baso # (Auto) (0.02-0.10) K/uL PT (9.0-11.5) sec INR (1.0-3.5) ABG pH 7.24 L (7.35-7.45) ABG pCO2 94.4 H* (35-45) mmHg ABG pO2 120 H (80-105) mmHg ABG HCO3 40.6 H (22-26) mmol/L ABG O2 Saturation 97 (95-98) % ABG Base Excess 13 H (-2-2) O2 Delivery Device Non rebr mask Sodium (136-145) mmol/L Potassium (3.5-5.1) mmol/L Chloride (98-107) mmol/L Carbon Dioxide (21.0-32.0) mmol/L Anion Gap (5.0-15.0) mmol/L BUN (8-26) mg/dL Creatinine (0.70-1.30) mg/dL Est Cr Clr Drug Dosing mL/min Estimated GFR (MDRD) (>60) MLS/MIN BUN/Creatinine Ratio (6-25) Glucose (74-100) mg/dL Hemoglobin A1c 7.1 H (< 5.7) % Lactic Acid (0.4-2.0) mmol/L Calcium (8.5-10.1) mg/dL Magnesium (1.8-2.4) mg/dL Total Bilirubin (0.0-1.0) mg/dL AST (15-37) U/L ALT (12-78) U/L Alkaline Phosphatase (46-116) U/L Creatine Kinase (21-232) U/L Troponin I (0.000-0.060) ng/mL C-Reactive Protein (0.0-3.0) mg/L B-Natriuretic Peptide (0-125) pg/mL Total Protein (6.4-8.2) g/dL Albumin (3.4-5.0) g/dL Globulin (2.2-4.2) g/dL Albumin/Globulin Ratio (0.8-2.0) TSH, Ultra Sensitive (0.358-3.740) uIU/mL Urine Color Yellow Urine Appearance Clear (CLEAR) Urine pH 5.5 (5.0-8.0) Ur Specific [place] >= 1.030 (1.003-1.030) Urine Protein 100 H (NEGATIVE) mg/dL Urine Glucose (UA) Negative (NEGATIVE) mg/dL Urine Ketones Negative (NEGATIVE) mg/dL Urine Occult Blood Trace-lysed H (NEGATIVE) Urine Nitrite Negative (NEGATIVE) Urine Bilirubin Negative (NEGATIVE) Urine Urobilinogen 0.2 (0.2-1.0) E.U./dL Ur Leukocyte Esterase Negative (NEGATIVE) U Hyaline Cast (Auto) Moderate /HPF Urine RBC 0-5 H /HPF Urine WBC 0-5 H /HPF Fine Granular Casts Moderate H /HPF 11/14/19 Range/Units 20:00 WBC (4.0-11.0) K/uL RBC (4.50-6.50) M/uL Hgb (13.0-18.0) g/dL Hct (40.0-54.0) % MCV (76-96) fL MCH (27.0-32.0) pg MCHC (31.0-35.0) g/dL RDW (11.0-16.0) % Plt Count (150-400) K/uL MPV (6.0-10.0) fL Neut % (Auto) (45.0-70.0) % Lymph % (Auto) (20.0-40.0) % [place] % (Auto) (3.0-10.0) % Eos % (Auto) (1.0-5.0) % Baso % (Auto) (0.0-0.5) % Neut # (Auto) (2.00-7.50) K/uL Lymph # (Auto) (1.50-4.00) K/uL [place] # (Auto) (0.20-0.80) K/uL Eos # (Auto) (0.04-0.40) K/uL Baso # (Auto) (0.02-0.10) K/uL PT (9.0-11.5) sec INR (1.0-3.5) ABG pH (7.35-7.45) ABG pCO2 (35-45) mmHg ABG pO2 (80-105) mmHg ABG HCO3 (22-26) mmol/L ABG O2 Saturation (95-98) % ABG Base Excess (-2-2) O2 Delivery Device Sodium (136-145) mmol/L Potassium (3.5-5.1) mmol/L Chloride (98-107) mmol/L Carbon Dioxide (21.0-32.0) mmol/L Anion Gap (5.0-15.0) mmol/L BUN (8-26) mg/dL Creatinine (0.70-1.30) mg/dL Est Cr Clr Drug Dosing mL/min Estimated GFR (MDRD) (>60) MLS/MIN BUN/Creatinine Ratio (6-25) Glucose (74-100) mg/dL Hemoglobin A1c (< 5.7) % Lactic Acid (0.4-2.0) mmol/L Calcium (8.5-10.1) mg/dL Magnesium (1.8-2.4) mg/dL Total Bilirubin (0.0-1.0) mg/dL AST (15-37) U/L ALT (12-78) U/L Alkaline Phosphatase (46-116) U/L Creatine Kinase (21-232) U/L Troponin I < 0.017 (0.000-0.060) ng/mL C-Reactive Protein (0.0-3.0) mg/L B-Natriuretic Peptide (0-125) pg/mL Total Protein (6.4-8.2) g/dL Albumin (3.4-5.0) g/dL Globulin (2.2-4.2) g/dL Albumin/Globulin Ratio (0.8-2.0) TSH, Ultra Sensitive (0.358-3.740) uIU/mL Urine Color Urine Appearance (CLEAR) Urine pH (5.0-8.0) Ur Specific [place] (1.003-1.030) Urine Protein (NEGATIVE) mg/dL Urine Glucose (UA) (NEGATIVE) mg/dL Urine Ketones (NEGATIVE) mg/dL Urine Occult Blood (NEGATIVE) Urine Nitrite (NEGATIVE) Urine Bilirubin (NEGATIVE) Urine Urobilinogen (0.2-1.0) E.U./dL Ur Leukocyte Esterase (NEGATIVE) U Hyaline Cast (Auto) /HPF Urine RBC /HPF Urine WBC /HPF Fine Granular Casts /HPF Result Diagrams: 11/14/19 12:40 11/14/19 12:40 Sepsis Event Note - Evaluation Sepsis Screening Result: No Definite Risk - Focused Exam Vital Signs: Vital Signs Temp Pulse Resp BP Pulse Ox 11/14/19 17:32 92 L 11/14/19 15:25 98.6 F 94 26 H 158/88 H 100 11/14/19 13:20 97.6 F 102 H 16 133/85 96 11/14/19 13:15 100 22 H 142/81 H 100 11/14/19 12:23 97.2 F 98 21 H 130/110 H 100 11/14/19 12:00 97.8 F 78 26 H 160/90 H 100 Date Exam was Performed: 11/14/19 Time Exam was Performed: 20:56 Problem List Initiated/Reviewed/Updated: Yes Orders Last 24hrs: Active Orders 24 hr Category Date Time Status Patient Status [ADT] Routine ADT 11/14/19 12:53 Active Cardiac Monitoring [RC] .As Directed Care 11/14/19 12:00 Inactive Intake and Output [RC] 06,18 Care 11/14/19 12:56 Active Notify Provider Vital Signs [RC] ASDIRECTED Care 11/14/19 12:56 Active Oxygen Therapy [RC] 1330 Care 11/14/19 12:53 Active RT Aerosol Therapy [RC] ASDIRECTED Care 11/14/19 20:05 Active Up With Assistance [RC] ASDIRECTED Care 11/14/19 12:52 Active Vital Signs [RC] Q4HR Care 11/14/19 12:53 Active OT Evaluation and Treatment [CONS] Routine Cons 11/14/19 12:52 Active PT Evaluation and Treatment [CONS] Routine Cons 11/14/19 12:52 Active 2 Gram Sodium Diet [DIET] Diet 11/14/19 Dinner Ordered Chest 1V Frontal [CR] Stat Exams 11/14/19 13:01 Taken CULTURE MRSA SURVEY [RM] Routine Lab 11/14/19 Received CULTURE WOUND + SMEAR [RM] Routine Lab 11/14/19 Received CULTURE WOUND + SMEAR [RM] Routine Lab 11/14/19 Received THYROXINE (T4) FREE, DIRECT, S Stat Lab 11/14/19 12:40 Received Acetaminophen [Tylenol] Med 11/14/19 12:52 Active 650 mg PO Q4H PRN Furosemide [Lasix] Med 11/14/19 20:00 Active 20 mg IVPUSH BID Magnesium Hydroxide [Milk of Magnesia] Med 11/14/19 12:52 Active 30 ml PO Q12H PRN Magnesium Oxide Med 11/14/19 14:30 Active 400 mg PO DAILY Multivitamins w-Iron/Ca/FA/Min [Thera M Plus] Med 11/14/19 14:30 Active 1 tab PO DAILY Nystatin [Nystatin Crm] Med 11/14/19 14:11 Hold See Dose Instructions TOP QID PRN Nystatin [Nystop] Med 11/14/19 14:11 Active See Dose Instructions TOP QID PRN Piperacillin/Tazobactam [Zosyn] 4.5 gm Med 11/14/19 20:00 Active Sodium Chloride 0.9% [Normal Saline] 100 ml IV Q6H Potassium Chloride [Klor-Con M20] Med 11/14/19 14:30 Active 20 meq PO BID Sodium Chloride 0.9% [Saline Flush] Med 11/14/19 12:52 Active 10 ml FLUSH ASDIRECTED PRN Triamcinolone Acetonide [Triamcinolone Acetonide 0.1% Med 11/14/19 14:19 Active Crm] See Dose Instructions TOP TID PRN Warfarin [Coumadin] Med 11/14/19 18:00 Active 12 mg PO DAILY@1800 Saline Lock Insert [OM.PC] Routine Oth 11/14/19 12:52 Ordered Resuscitation Status Routine Resus Stat 11/14/19 12:52 Ordered Medication Orders Acetaminophen (Tylenol) 650 mg PO Q4H PRN PRN Reason: Pain (Mild 1-3)/fever Furosemide (Lasix) 20 mg IVPUSH BID [facility] Last Admin: 11/14/19 19:33 Dose: 20 mg Piperacillin Sod/Tazobactam (Sod 4.5 gm/ Sodium Chloride) 100 mls @ 200 mls/hr IV Q6H NELIDA Magnesium Hydroxide (Milk Of Magnesia) 30 ml PO Q12H PRN PRN Reason: Constipation Magnesium Oxide (Magnesium Oxide) 400 mg PO DAILY [facility] Last Admin: 11/14/19 17:53 Dose: 400 mg Multivitamins/Minerals (Thera M Plus) 1 tab PO DAILY [facility] Last Admin: 11/14/19 17:53 Dose: 1 tab Nystatin (Nystatin Crm) 0 gm TOP QID PRN PRN Reason: Rash Nystatin (Nystop) 0 gm TOP QID PRN PRN Reason: Rash Potassium Chloride (Klor-Con M20) 20 meq PO BID [facility] Last Admin: 11/14/19 20:08 Dose: 20 meq Admin: 11/14/19 17:53 Dose: 20 meq Sodium Chloride (Saline Flush) 10 ml FLUSH ASDIRECTED PRN PRN Reason: Keep Vein Open Last Admin: 11/14/19 15:01 Dose: 10 ml Triamcinolone Acetonide (Triamcinolone Acetonide 0.1% Crm) 0 gm TOP TID PRN PRN Reason: Rash Warfarin Sodium (Coumadin) 12 mg PO DAILY@1800 [facility] Last Admin: 11/14/19 17:54 Dose: 12 mg
--- NOTE | 2019-11-14 21:27 | PCM.DCSUM1 ---
Discharge Summary - Hospital Course Free Text/Narrative:: Wicho presented with inability to stand after being bound to his chair fo his urine output with nothing hair for 2 days. Relates massive weight gain over 3 weeks. No SOB or respiratory sx's. No chest pain, pleuritic or otherwise. Provided with combination of thiazide and IV loop diuretics, and put out at least 1500 mL over ?6 orso hours. At shift change tonight, he was astutely noted to become more obtunded. ABG with features of acute respiratory failure and acidosis. Started on bipap. Tolerated well. Coordinated transfer with Dr. Mendiola, and appreciate his care. - Discharge Data Discharge Date: 11/14/19 Discharge Disposition: DC/Tfer to Acute Hospital 02 Condition: Good - Referral to Home Health Primary Care Physician: PCP None - Patient Summary/Data Consults: Consultations 11/14/19 12:52 OT Evaluation and Treatment [CONS] Routine Please Evaluate and Treat. OT Reason for Consult: ADL's This query below is only for informational purposes and is not editable. PT Evaluation and Treatment [CONS] Routine Please Evaluate and Treat. PT Reason for Consult: Wound Care This query below is only for informational purposes and is not editable. - Discharge Plan Home Medications: Home Meds Warfarin Sodium [Jantoven] 10 mg PO DAILY 03/28/19 [History] Warfarin Sodium [Jantoven] 15 mg PO DAILY 03/28/19 [History] Furosemide 40 mg PO BID 11/14/19 [History] Referrals: PCP,None [Primary Care Provider] - - Discharge Summary/Plan Comment DC Time >30 min.: No - General Info Functional Status: Reports: Pain Controlled, Urinating - Patient Data Vitals - Most Recent: Last Vital Signs Temp 97.5 F 11/14/19 19:10 Pulse 92 11/14/19 20:32 Resp 30 H 11/14/19 20:40 BP 136/88 11/14/19 20:40 Pulse Ox 97 11/14/19 20:40 Weight - Most Recent: 27 lb 3 oz I&O - Last 24 hours: Intake & Output 11/14/19 11/14/19 11/14/19 06:59 14:59 22:59 Intake Total 240 Output Total 1475 Balance -1235 Lab Results - Last 24 hrs: Laboratory Results - last 24 hr 11/14/19 11/14/19 11/14/19 Range/Units 12:23 12:40 12:40 WBC 10.5 D (4.0-11.0) K/uL RBC 4.97 (4.50-6.50) M/uL Hgb 14.3 (13.0-18.0) g/dL Hct 45.2 (40.0-54.0) % MCV 91 (76-96) fL MCH 28.8 (27.0-32.0) pg MCHC 31.6 (31.0-35.0) g/dL RDW 19.4 H (11.0-16.0) % Plt Count 319 (150-400) K/uL MPV 8.9 (6.0-10.0) fL Neut % (Auto) 77.6 H (45.0-70.0) % Lymph % (Auto) 12.8 L (20.0-40.0) % [place] % (Auto) 8.5 (3.0-10.0) % Eos % (Auto) 0.7 L (1.0-5.0) % Baso % (Auto) 0.4 (0.0-0.5) % Neut # (Auto) 8.17 H (2.00-7.50) K/uL Lymph # (Auto) 1.35 L (1.50-4.00) K/uL [place] # (Auto) 0.89 H (0.20-0.80) K/uL Eos # (Auto) 0.07 (0.04-0.40) K/uL Baso # (Auto) 0.04 (0.02-0.10) K/uL PT (9.0-11.5) sec INR (1.0-3.5) ABG pH (7.35-7.45) ABG pCO2 (35-45) mmHg ABG pO2 (80-105) mmHg ABG HCO3 (22-26) mmol/L ABG O2 Saturation (95-98) % ABG Base Excess (-2-2) O2 Delivery Device Sodium 141 (136-145) mmol/L Potassium 4.2 (3.5-5.1) mmol/L Chloride 102 (98-107) mmol/L Carbon Dioxide 36.0 H (21.0-32.0) mmol/L Anion Gap 7.2 (5.0-15.0) mmol/L BUN 26 D (8-26) mg/dL Creatinine 1.24 (0.70-1.30) mg/dL Est Cr Clr Drug Dosing 67.87 mL/min Estimated GFR (MDRD) > 60 (>60) MLS/MIN BUN/Creatinine Ratio 21.0 (6-25) Glucose 112 H (74-100) mg/dL Hemoglobin A1c (< 5.7) % Lactic Acid (0.4-2.0) mmol/L Calcium 8.4 L (8.5-10.1) mg/dL Magnesium 2.0 (1.8-2.4) mg/dL Total Bilirubin 1.2 H D (0.0-1.0) mg/dL AST 18 (15-37) U/L ALT 18 (12-78) U/L Alkaline Phosphatase 65 (46-116) U/L Creatine Kinase 65 (21-232) U/L Troponin I < 0.017 (0.000-0.060) ng/mL C-Reactive Protein 60.0 H (0.0-3.0) mg/L B-Natriuretic Peptide 2222 H D (0-125) pg/mL Total Protein 8.2 (6.4-8.2) g/dL Albumin 2.6 L (3.4-5.0) g/dL Globulin 5.6 H (2.2-4.2) g/dL Albumin/Globulin Ratio 0.5 L (0.8-2.0) TSH, Ultra Sensitive (0.358-3.740) uIU/mL Urine Color Urine Appearance (CLEAR) Urine pH (5.0-8.0) Ur Specific [place] (1.003-1.030) Urine Protein (NEGATIVE) mg/dL Urine Glucose (UA) (NEGATIVE) mg/dL Urine Ketones (NEGATIVE) mg/dL Urine Occult Blood (NEGATIVE) Urine Nitrite (NEGATIVE) Urine Bilirubin (NEGATIVE) Urine Urobilinogen (0.2-1.0) E.U./dL Ur Leukocyte Esterase (NEGATIVE) U Hyaline Cast (Auto) /HPF Urine RBC /HPF Urine WBC /HPF Fine Granular Casts /HPF 11/14/19 11/14/19 11/14/19 Range/Units 12:40 12:40 12:40 WBC (4.0-11.0) K/uL RBC (4.50-6.50) M/uL Hgb (13.0-18.0) g/dL Hct (40.0-54.0) % MCV (76-96) fL MCH (27.0-32.0) pg MCHC (31.0-35.0) g/dL RDW (11.0-16.0) % Plt Count (150-400) K/uL MPV (6.0-10.0) fL Neut % (Auto) (45.0-70.0) % Lymph % (Auto) (20.0-40.0) % [place] % (Auto) (3.0-10.0) % Eos % (Auto) (1.0-5.0) % Baso % (Auto) (0.0-0.5) % Neut # (Auto) (2.00-7.50) K/uL Lymph # (Auto) (1.50-4.00) K/uL [place] # (Auto) (0.20-0.80) K/uL Eos # (Auto) (0.04-0.40) K/uL Baso # (Auto) (0.02-0.10) K/uL PT 13.3 H D (9.0-11.5) sec INR 1.4 D (1.0-3.5) ABG pH (7.35-7.45) ABG pCO2 (35-45) mmHg ABG pO2 (80-105) mmHg ABG HCO3 (22-26) mmol/L ABG O2 Saturation (95-98) % ABG Base Excess (-2-2) O2 Delivery Device Sodium (136-145) mmol/L Potassium (3.5-5.1) mmol/L Chloride (98-107) mmol/L Carbon Dioxide (21.0-32.0) mmol/L Anion Gap (5.0-15.0) mmol/L BUN (8-26) mg/dL Creatinine (0.70-1.30) mg/dL Est Cr Clr Drug Dosing mL/min Estimated GFR (MDRD) (>60) MLS/MIN BUN/Creatinine Ratio (6-25) Glucose (74-100) mg/dL Hemoglobin A1c (< 5.7) % Lactic Acid 2.0 (0.4-2.0) mmol/L Calcium (8.5-10.1) mg/dL Magnesium (1.8-2.4) mg/dL Total Bilirubin (0.0-1.0) mg/dL AST (15-37) U/L ALT (12-78) U/L Alkaline Phosphatase (46-116) U/L Creatine Kinase (21-232) U/L Troponin I (0.000-0.060) ng/mL C-Reactive Protein (0.0-3.0) mg/L B-Natriuretic Peptide (0-125) pg/mL Total Protein (6.4-8.2) g/dL Albumin (3.4-5.0) g/dL Globulin (2.2-4.2) g/dL Albumin/Globulin Ratio (0.8-2.0) TSH, Ultra Sensitive 5.390 H D (0.358-3.740) uIU/mL Urine Color Urine Appearance (CLEAR) Urine pH (5.0-8.0) Ur Specific [place] (1.003-1.030) Urine Protein (NEGATIVE) mg/dL Urine Glucose (UA) (NEGATIVE) mg/dL Urine Ketones (NEGATIVE) mg/dL Urine Occult Blood (NEGATIVE) Urine Nitrite (NEGATIVE) Urine Bilirubin (NEGATIVE) Urine Urobilinogen (0.2-1.0) E.U./dL Ur Leukocyte Esterase (NEGATIVE) U Hyaline Cast (Auto) /HPF Urine RBC /HPF Urine WBC /HPF Fine Granular Casts /HPF 11/14/19 11/14/19 11/14/19 Range/Units 12:40 14:17 20:00 WBC (4.0-11.0) K/uL RBC (4.50-6.50) M/uL Hgb (13.0-18.0) g/dL Hct (40.0-54.0) % MCV (76-96) fL MCH (27.0-32.0) pg MCHC (31.0-35.0) g/dL RDW (11.0-16.0) % Plt Count (150-400) K/uL MPV (6.0-10.0) fL Neut % (Auto) (45.0-70.0) % Lymph % (Auto) (20.0-40.0) % [place] % (Auto) (3.0-10.0) % Eos % (Auto) (1.0-5.0) % Baso % (Auto) (0.0-0.5) % Neut # (Auto) (2.00-7.50) K/uL Lymph # (Auto) (1.50-4.00) K/uL [place] # (Auto) (0.20-0.80) K/uL Eos # (Auto) (0.04-0.40) K/uL Baso # (Auto) (0.02-0.10) K/uL PT (9.0-11.5) sec INR (1.0-3.5) ABG pH 7.24 L (7.35-7.45) ABG pCO2 94.4 H* (35-45) mmHg ABG pO2 120 H (80-105) mmHg ABG HCO3 40.6 H (22-26) mmol/L ABG O2 Saturation 97 (95-98) % ABG Base Excess 13 H (-2-2) O2 Delivery Device Non rebr mask Sodium (136-145) mmol/L Potassium (3.5-5.1) mmol/L Chloride (98-107) mmol/L Carbon Dioxide (21.0-32.0) mmol/L Anion Gap (5.0-15.0) mmol/L BUN (8-26) mg/dL Creatinine (0.70-1.30) mg/dL Est Cr Clr Drug Dosing mL/min Estimated GFR (MDRD) (>60) MLS/MIN BUN/Creatinine Ratio (6-25) Glucose (74-100) mg/dL Hemoglobin A1c 7.1 H (< 5.7) % Lactic Acid (0.4-2.0) mmol/L Calcium (8.5-10.1) mg/dL Magnesium (1.8-2.4) mg/dL Total Bilirubin (0.0-1.0) mg/dL AST (15-37) U/L ALT (12-78) U/L Alkaline Phosphatase (46-116) U/L Creatine Kinase (21-232) U/L Troponin I (0.000-0.060) ng/mL C-Reactive Protein (0.0-3.0) mg/L B-Natriuretic Peptide (0-125) pg/mL Total Protein (6.4-8.2) g/dL Albumin (3.4-5.0) g/dL Globulin (2.2-4.2) g/dL Albumin/Globulin Ratio (0.8-2.0) TSH, Ultra Sensitive (0.358-3.740) uIU/mL Urine Color Yellow Urine Appearance Clear (CLEAR) Urine pH 5.5 (5.0-8.0) Ur Specific [place] >= 1.030 (1.003-1.030) Urine Protein 100 H (NEGATIVE) mg/dL Urine Glucose (UA) Negative (NEGATIVE) mg/dL Urine Ketones Negative (NEGATIVE) mg/dL Urine Occult Blood Trace-lysed H (NEGATIVE) Urine Nitrite Negative (NEGATIVE) Urine Bilirubin Negative (NEGATIVE) Urine Urobilinogen 0.2 (0.2-1.0) E.U./dL Ur Leukocyte Esterase Negative (NEGATIVE) U Hyaline Cast (Auto) Moderate /HPF Urine RBC 0-5 H /HPF Urine WBC 0-5 H /HPF Fine Granular Casts Moderate H /HPF 04//20 Range/Units 20:00 WBC (4.0-11.0) K/uL RBC (4.50-6.50) M/uL Hgb (13.0-18.0) g/dL Hct (40.0-54.0) % MCV (76-96) fL MCH (27.0-32.0) pg MCHC (31.0-35.0) g/dL RDW (11.0-16.0) % Plt Count (150-400) K/uL MPV (6.0-10.0) fL Neut % (Auto) (45.0-70.0) % Lymph % (Auto) (20.0-40.0) % [place] % (Auto) (3.0-10.0) % Eos % (Auto) (1.0-5.0) % Baso % (Auto) (0.0-0.5) % Neut # (Auto) (2.00-7.50) K/uL Lymph # (Auto) (1.50-4.00) K/uL [place] # (Auto) (0.20-0.80) K/uL Eos # (Auto) (0.04-0.40) K/uL Baso # (Auto) (0.02-0.10) K/uL PT (9.0-11.5) sec INR (1.0-3.5) ABG pH (7.35-7.45) ABG pCO2 (35-45) mmHg ABG pO2 (80-105) mmHg ABG HCO3 (22-26) mmol/L ABG O2 Saturation (95-98) % ABG Base Excess (-2-2) O2 Delivery Device Sodium (136-145) mmol/L Potassium (3.5-5.1) mmol/L Chloride (98-107) mmol/L Carbon Dioxide (21.0-32.0) mmol/L Anion Gap (5.0-15.0) mmol/L BUN (8-26) mg/dL Creatinine (0.70-1.30) mg/dL Est Cr Clr Drug Dosing mL/min Estimated GFR (MDRD) (>60) MLS/MIN BUN/Creatinine Ratio (6-25) Glucose (74-100) mg/dL Hemoglobin A1c (< 5.7) % Lactic Acid (0.4-2.0) mmol/L Calcium (8.5-10.1) mg/dL Magnesium (1.8-2.4) mg/dL Total Bilirubin (0.0-1.0) mg/dL AST (15-37) U/L ALT (12-78) U/L Alkaline Phosphatase (46-116) U/L Creatine Kinase (21-232) U/L Troponin I < 0.017 (0.000-0.060) ng/mL C-Reactive Protein (0.0-3.0) mg/L B-Natriuretic Peptide (0-125) pg/mL Total Protein (6.4-8.2) g/dL Albumin (3.4-5.0) g/dL Globulin (2.2-4.2) g/dL Albumin/Globulin Ratio (0.8-2.0) TSH, Ultra Sensitive (0.358-3.740) uIU/mL Urine Color Urine Appearance (CLEAR) Urine pH (5.0-8.0) Ur Specific [place] (1.003-1.030) Urine Protein (NEGATIVE) mg/dL Urine Glucose (UA) (NEGATIVE) mg/dL Urine Ketones (NEGATIVE) mg/dL Urine Occult Blood (NEGATIVE) Urine Nitrite (NEGATIVE) Urine Bilirubin (NEGATIVE) Urine Urobilinogen (0.2-1.0) E.U./dL Ur Leukocyte Esterase (NEGATIVE) U Hyaline Cast (Auto) /HPF Urine RBC /HPF Urine WBC /HPF Fine Granular Casts /HPF Med Orders - Current: Current Medications Acetaminophen (Tylenol) 650 mg PO Q4H PRN PRN Reason: Pain (Mild 1-3)/fever Furosemide (Lasix) 20 mg IVPUSH BID [facility] Last Admin: 11/14/19 19:33 Dose: 20 mg Piperacillin Sod/Tazobactam (Sod 4.5 gm/ Sodium Chloride) 100 mls @ 200 mls/hr IV Q6H [facility] Magnesium Hydroxide (Milk Of Magnesia) 30 ml PO Q12H PRN PRN Reason: Constipation Magnesium Oxide (Magnesium Oxide) 400 mg PO DAILY [facility] Last Admin: 11/14/19 17:53 Dose: 400 mg Multivitamins/Minerals (Thera M Plus) 1 tab PO DAILY [facility] Last Admin: 11/14/19 17:53 Dose: 1 tab Nystatin (Nystatin Crm) 0 gm TOP QID PRN PRN Reason: Rash Nystatin (Nystop) 0 gm TOP QID PRN PRN Reason: Rash Potassium Chloride (Klor-Con M20) 20 meq PO BID [facility] Last Admin: 11/14/19 20:08 Dose: 20 meq Sodium Chloride (Saline Flush) 10 ml FLUSH ASDIRECTED PRN PRN Reason: Keep Vein Open Last Admin: 11/14/19 15:01 Dose: 10 ml Triamcinolone Acetonide (Triamcinolone Acetonide 0.1% Crm) 0 gm TOP TID PRN PRN Reason: Rash Warfarin Sodium (Coumadin) 12 mg PO DAILY@1800 [facility] Last Admin: 11/14/19 17:54 Dose: 12 mg Discontinued Medications Albuterol/Ipratropium (Duoneb 3.0-0.5 Mg/3 Ml) 3 ml NEB ONETIME ONE Stop: 11/14/19 20:06 Last Admin: 11/14/19 20:34 Dose: 3 ml Furosemide (Lasix) Confirm Administered Dose 40 mg .ROUTE .STK-MED ONE Stop: 11/14/19 11:57 Last Admin: 11/14/19 15:00 Dose: 40 mg Lidocaine HCl (Xylocaine 2% Jelly) Confirm Administered Dose 5 ml .ROUTE .STK- MED ONE Stop: 11/14/19 19:54 Methylprednisolone Sodium Succinate (Solu-Medrol) 125 mg IVPUSH ONETIME ONE Stop: 11/14/19 20:03 Metolazone (Zaroxolyn) 5 mg PO ONETIME ONE Stop: 11/14/19 14:11 Last Admin: 11/14/19 14:30 Dose: 5 mg Morphine Sulfate (Morphine) 2 mg IVPUSH ONETIME ONE Stop: 11/14/19 20:02 Last Admin: 11/14/19 20:25 Dose: 2 mg Triamcinolone Acetonide (Triamcinolone Acetonide 0.5%) Confirm Administered Dose 15 gm .ROUTE .STK-MED ONE Stop: 11/14/19 14:29 Last Admin: 11/14/19 15:07 Dose: Not Given Warfarin Sodium (Coumadin) Confirm Administered Dose 5 mg .ROUTE .STK-MED ONE Stop: 11/14/19 17:53 Last Admin: 11/14/19 19:09 Dose: Not Given Warfarin Sodium (Coumadin) Confirm Administered Dose 7.5 mg .ROUTE .STK-MED ONE Stop: 11/14/19 17:53 Last Admin: 11/14/19 19:09 Dose: Not Given - Exam Quality Assessment: Reports: Supplemental Oxygen, Skin Breakdown General: Reports: Alert, Oriented, Cooperative HEENT: Reports: Pupils Equal, EOMI, Mucous Membr. Moist/[place] Neck: Reports: Supple Lungs: Reports: Other (diminished related to body habitus) Cardiovascular: Reports: Regular Rate, No Murmurs GI/Abdominal Exam: Normal Bowel Sounds, Soft, Non-Tender Extremities: Normal Capillary Refill, Pedal Edema Neurological: Reports: No New Focal Deficit
--- NOTE | 2019-11-15 07:48 | CR ---
DATE OF SERVICE: 11/15/19 CLINICAL DATA: inability to ambulate AP CHEST: Comparison is made to a prior exam dated 03/28/19. The patient has taken a poor inspiration. There is breathing motion artifact. The heart is enlarged. The aorta is ectatic. The pulmonary vasculature appears mildly prominent. It is probably accentuated by the poor inspiration. Pulmonary venous congestion cannot be excluded. There are densities in both lung bases consistent with basilar atelectasis or infiltrate. There is blunting of both costophrenic angles suggesting small bilateral pleural effusions. No pneumothorax. [id number] [facility]
== END 2019-11-14 21:55 | DRG 861 ==
LOC: LB.ED 11:04 → LB.MS 12:52
PROVIDERS: ADMIT Family Medicine; ATTEND Family Medicine
PROC: 5A09357 Assistance with Respiratory Ventilation, Less than 24 Consecutive Hours, Continuous Positive Airway Pressure (ICD-10-PCS; principal; 2019-11-14)
DX: R53.1 Weakness (principal); J96.00 Acute respiratory failure, unspecified whether with hypoxia or hypercapnia; I10 Essential (primary) hypertension; Z79.01 Long term (current) use of anticoagulants; Z79.899 Other long term (current) drug therapy
CPT/HCPCS: 36415; 36600; 71045; 80053; 81001; 82550; 82803; 83036; 83605; 83735; 83880; 84439; 84443; 84484; 85025; 85610; 86140; 87070; 87077; 87186; 87205; 94660; 99236; 99283; 99285-25; A0425; A0429; A9270-GY; J1940; J2270; J7620-GY